=== PATIENT | male | born 1960 | race Native Hawaiian/Other Pacific Islander ===

== ENCOUNTER 2019-06-09 11:42 | Emergency (ER) | payer OTHER ==
[2019-06-09] MEDS ORDERED: cloNIDine 0.1 MG TAB PO ONE (13:38)
[2019-06-09] MEDS ORDERED: cloNIDine 0.2 MG TAB PO ONE (13:40)
--- NOTE | 2019-06-09 13:44 | Emergency Department Report ---
ED General Adult HPI - General Chief complaint: High BP Stated complaint: HBP Time Seen by Provider: 06/09/19 13:35 Source: patient Mode of arrival: Ambulatory Limitations: No Limitations - History of Present Illness Initial comments: Mr. Holly is a very pleasant 58 yo male with hx of HTN who presents with elevated blood pressure. He takes Metoprolol and Losartan. He did not take Losartan for the past couple of days because of fear of cancer risk. He did not want to continue taking Losartan from a certain frame runner. He did find a bottle of Losartan from another frame runner. He began taking Losartan on yesterday due to headache. He is currently symptom free now. His PCP is affiliated with at [facility]. Using his home blood pressure cuff, he will also has blood pressure was elevated on yesterday. -: Gradual, days(s) (2) Location: head Severity scale (0 -10): 0 Quality: dull Consistency: now resolved Improves with: medication (blood pressure medication) Worsens with: none Associated Symptoms: denies other symptoms - Related Data Allergies Allergy/AdvReac Type Severity Reaction Status Date / Time No Known Allergies Allergy Unverified 06/09/19 11:49 ED Review of Systems ROS: Stated complaint: HBP Other details as noted in HPI Comment: All other systems reviewed and negative Constitutional: denies: fever, malaise Cardiovascular: denies: chest pain Gastrointestinal: denies: abdominal pain ED Past Medical Hx - Past Medical History Previous Medical History?: Yes Hx Hypertension: Yes - Surgical History Past Surgical History?: No - Family History Family history: hypertension - Social History Smoking Status: Former Smoker Substance Use Type: Alcohol ED Physical Exam - General Limitations: No Limitations General appearance: alert, in no apparent distress, other (pleasant healthy) - Head Head exam: Present: atraumatic, normocephalic - Eye Eye exam: Present: normal appearance - ENT ENT exam: Present: mucous membranes moist - Neck Neck exam: Present: normal inspection, full ROM - Respiratory Respiratory exam: Present: normal lung sounds bilaterally. Absent: respiratory distress, wheezes, rales, rhonchi - Cardiovascular Cardiovascular Exam: Present: regular rate, normal rhythm, normal heart sounds. Absent: systolic murmur, diastolic murmur, rubs, gallop - GI/Abdominal GI/Abdominal exam: Present: soft, normal bowel sounds. Absent: distended, tenderness, guarding, rebound - Rectal Rectal exam: Present: deferred - Extremities Exam Extremities exam: Present: normal inspection - Back Exam Back exam: Present: normal inspection - Neurological Exam Neurological exam: Present: alert, oriented X3 - Psychiatric Psychiatric exam: Present: normal affect, normal mood - Skin Skin exam: Present: warm, dry, intact, normal color. Absent: rash ED Course Vital Signs 06/09/19 11:53 Temperature 98.0 F Pulse Rate 58 L Respiratory 20 Rate Blood Pressure 189/94 O2 Sat by Pulse 98 Oximetry ED Medical Decision Making - Medical Decision Making Asymptomatic hypertensive urgency: Strongly encourage consistent use of metoprolol and losartan. He will follow-up at [facility] on Wednesday. He received clonidine here in the emergency department. Critical care attestation.: If time is entered above; I have spent that time in minutes in the direct care of this critically ill patient, excluding procedure time. ED Disposition Clinical Impression: Asymptomatic hypertensive urgency Disposition: DC-01 TO HOME OR SELFCARE Is pt being admited?: No Does the pt Need Aspirin: No Condition: Stable Instructions: Hypertension (ED) Referrals: SAJAN LNY MD [Staff Physician] - 3-5 Days Forms: Work/School Release Form(ED)
[2019-06-09 13:51] VITALS: BP 159/86
== END 2019-06-09 14:06 | disposition home or self-care (01) ==
LOC: ED 11:42
DX: I16.0 Hypertensive urgency (principal); I10 Essential (primary) hypertension; Z87.891 Personal history of nicotine dependence
CPT/HCPCS: 99282